=== PATIENT | female | born 1985 | race American Indian/Alaskan Native ===

== ENCOUNTER 2017-09-04 23:25 | Inpatient (IN) | payer OTHER ==
[2017-09-05] MEDS ORDERED: NACL 0.9% 250ML 250 ML IV ONE (00:34)
--- NOTE | 2017-09-05 00:40 | Emergency Department Report ---
ED Neuro Deficit HPI - General Chief Complaint: Altered Mental Status Stated Complaint: AMS Time Seen by Provider: 09/05/17 00:22 Source: family, EMS (ems notes not available at time of chart dictation), RN notes reviewed Mode of arrival: Stretcher Limitations: Altered Mental Status, Physical Limitation - History of Present Illness Initial Comments: This is a 32-year-old female who is unknown to this provider previously. She is accompanied by her , Mr. Ermias Quiles; [phone] Primary care doctor at the [facility]. Patient is accompanied by her , who reports that patient's last known well time was at 9:30 on the evening of presentation. He reports that the patient had consumed marijuana at 6:30 in the afternoon, and a sexual enhancement supplement , from a local sex shop, he does not know the active ingredients or have the pill bottle on him. He reports then at around 9:30 PM, the patient was nonresponsive and nonverbal. He is fairly certain that this is her last known well time. The patient is nonverbal, and cannot describe exacerbating or relieving factors. Please note that the patient was triaged at 23:46, and had initial orders placed at 23:57. I was not personally informed of the patient's neurologic symptoms. I picked up the patient at 12:25 AM. After a quick evaluation of the patient and with her , a code stroke was called overhead. Fingerstick was noted to be within normal limits, and a noncontrast CT scan of the brain was also negative. The patient's verbally stated that the patient was not , and stated he would sign consent attesting as much. In addition, the patient required an emergent CT angiogram of the head and neck. The risks, benefits, alternatives were discussed with the , and he gave verbal and written consent for IV contrast. The CT angiogram of the brain was interpreted as negative. The patient was seen in conjunction with stroke neurology, Dr. Cooper, who recommended TPA. The risks of TPA were discussed with the , including the risk of disability, brain bleed, and . He gave verbal informed consent as well as signing consent. The patient is currently receiving TPA infusion. Consult the stroke neurology recommended an emergent MRI to evaluate for possible brainstem stroke. She recommended transfer to a dedicated neurology facility if MRI confirmed brainstem stroke. -: Sudden Location: speech, left face, left arm History of same: No Place: home Severity: severe Quality: other (the patient is nonverbal, cannot describe quality, and cannot describe exacerbating or relieving factors) Associated Symptoms: other - Related Data Home Medications: Home Medications Medication Instructions Recorded Confirmed Last Taken FLUoxetine HCL [FLUoxetine] 60 mg PO QDAY 09/05/17 09/05/17 1 Day Ago ~09/04/17 Hydroxyzine HCl 25 mg PO HS 09/05/17 09/05/17 2 Days Ago ~09/03/17 Prazosin HCl 2 mg PO HS 09/05/17 09/05/17 2 Days Ago ~09/03/17 buPROPion [Wellbutrin] 200 mg PO DAILY 09/05/17 09/05/17 1 Day Ago ~09/04/17 Previous Rx's Medication Instructions Recorded Last Taken Type Ibuprofen [Motrin] 800 mg PO Q8HR PRN #20 tablet 01/28/15 2 Weeks Ago Rx ~08/22/17 Allergies/Adverse Reactions: Allergies Allergy/AdvReac Type Severity Reaction Status Date / Time No Known Allergies Allergy Verified 09/04/17 23:55 ED Review of Systems ROS: Stated complaint: AMS Other details as noted in HPI Comment: Unobtainable due to pts medical conditions ED Past Medical Hx - Past Medical History Previous Medical History?: No - Surgical History Past Surgical History?: No - Social History Smoking Status: Current Some Day Smoker Substance Use Type: None - Medications Home Medications: Home Medications Medication Instructions Recorded Confirmed Last Taken Type Ibuprofen [Motrin] 800 mg PO Q8HR PRN #20 tablet 01/28/15 09/05/17 2 Weeks Ago Rx ~08/22/17 FLUoxetine HCL [FLUoxetine] 60 mg PO QDAY 09/05/17 09/05/17 1 Day Ago History ~09/04/17 Hydroxyzine HCl 25 mg PO HS 09/05/17 09/05/17 2 Days Ago History ~09/03/17 Prazosin HCl 2 mg PO HS 09/05/17 09/05/17 2 Days Ago History ~09/03/17 buPROPion [Wellbutrin] 200 mg PO DAILY 09/05/17 09/05/17 1 Day Ago History ~09/04/17 ED Neuro Physical Exam - General Limitations: Altered Mental Status, Physical Limitation General appearance: alert, in no apparent distress Suspected Stroke: Yes - Head Head exam: Present: atraumatic, normocephalic - Eye Eye exam: Present: normal appearance, PERRL, EOMI. Absent: nystagmus - ENT ENT exam: Present: normal exam, mucous membranes moist, normal external ear exam - Neck Neck exam: Present: normal inspection, full ROM - Respiratory Respiratory exam: Present: normal lung sounds bilaterally. Absent: respiratory distress - Cardiovascular Cardiovascular Exam: Present: regular rate, normal rhythm, normal heart sounds. Absent: bradycardia, tachycardia, irregular rhythm, systolic murmur, diastolic murmur, rubs, gallop - GI/Abdominal GI/Abdominal exam: Present: soft, normal bowel sounds. Absent: distended, tenderness, guarding, rebound, rigid, pulsatile mass - Extremities Exam Extremities exam: Present: normal inspection, normal capillary refill. Absent: pedal edema, calf tenderness - Back Exam Back exam: Present: normal inspection. Absent: paraspinal tenderness, vertebral tenderness - Neurological Exam Neurological exam: Present: motor sensory deficit - NIHSS Assessment Interval: Baseline 1a. Level of Consciousness: alert 1b. LOC Questions: answers no questions correctly 1c. LOC Commands: performs no tasks correctly 2. Best Gaze: normal 3. Visual: bilateral hemianopia (unable to assess) 4. Facial Palsy: minor paralysis (unable to assess) 5b. Motor Arm Right: no movement 5a. Motor Arm Left: no movement 6a. Motor Leg Left: no movement 6b. Motor Leg Right: no movement 7. Limb Ataxia: amputation 8. Sensory: severe/total sensory loss 9. Best Language: mute/global aphasia 10. Dysarthria: intubated or other barrier 11. Extinction/Inattention: visual/tactile inattention - Psychiatric Psychiatric exam: Present: anxious - Skin Skin exam: Present: warm, dry, intact, normal color. Absent: rash ED Course Vital Signs 09/04/17 09/05/17 09/05/17 23:46 01:32 01:33 Temperature 97.9 F Pulse Rate 70 69 69 Pulse Rate [ Apical] Pulse Rate [ Left Arm] Respiratory Rate Respiratory Rate [Left Arm] Blood Pressure 144/88 152/89 152/89 Blood Pressure [Left Arm] Blood Pressure [Left] O2 Sat by Pulse 99 Oximetry O2 Sat by Pulse Oximetry [Left Arm] 09/05/17 09/05/17 09/05/17 04:30 05:00 05:30 Temperature Pulse Rate 78 64 61 Pulse Rate [ Apical] Pulse Rate [ Left Arm] Respiratory 14 12 12 Rate Respiratory Rate [Left Arm] Blood Pressure Blood Pressure [Left Arm] Blood Pressure 117/55 116/66 118/67 [Left] O2 Sat by Pulse 98 98 98 Oximetry O2 Sat by Pulse Oximetry [Left Arm] 09/05/17 09/05/17 09/05/17 06:00 06:26 07:03 Temperature Pulse Rate 69 Pulse Rate [ Apical] Pulse Rate [ 69 Left Arm] Respiratory 12 12 Rate Respiratory 15 Rate [Left Arm] Blood Pressure Blood Pressure 116/67 [Left Arm] Blood Pressure 115/71 [Left] O2 Sat by Pulse 95 98 Oximetry O2 Sat by Pulse 97 Oximetry [Left Arm] 09/05/17 09/05/17 09/05/17 07:12 07:17 08:03 Temperature 97.1 F L Pulse Rate Pulse Rate [ 70 Apical] Pulse Rate [ 71 Left Arm] Respiratory Rate Respiratory 18 Rate [Left Arm] Blood Pressure Blood Pressure 112/70 [Left Arm] Blood Pressure [Left] O2 Sat by Pulse Oximetry O2 Sat by Pulse 97 Oximetry [Left Arm] 09/05/17 09:03 Temperature Pulse Rate Pulse Rate [ Apical] Pulse Rate [ 75 Left Arm] Respiratory Rate Respiratory 14 Rate [Left Arm] Blood Pressure Blood Pressure 105/59 [Left Arm] Blood Pressure [Left] O2 Sat by Pulse Oximetry O2 Sat by Pulse 96 Oximetry [Left Arm] - Reevaluation(s) Reevaluation #1: 09/05/17 02:36 CT angiogram of the neck is negative for thrombosis or significant disease. MR is pending at this time. Patient is able to move her hands at this point in time. Vital signs remain unchanged and stable. Reevaluation #2: 09/05/17 03:37 Patient able to lift both arms, and wiggle both feet. Speaking in soft sentences. Currently in MRI. Reevaluation #3: 09/05/17 04:27 MRI result pending. Reevaluation #4: 09/05/17 04:47 MRI of the brain is negative. Patient moving 4 extremities. Patient speaking. Critical care contacted. Dr. Schafer authorized placement into the icu Reevaluation #5: 09/05/17 05:26 Dr. Vyas accepted the patient to the medical service. - Lab Data Result diagrams: 09/05/17 00:26 09/05/17 00:26 Lab Results 09/05/17 09/05/17 09/05/17 Range/Units 00:26 00:26 00:26 WBC 6.5 (4.5-11.0) K/mm3 RBC 4.93 (3.65-5.03) M/mm3 Hgb 13.3 (10.1-14.3) gm/dl Hct 41.6 (30.3-42.9) % MCV 85 (79-97) fl MCH 27 L (28-32) pg MCHC 32 (30-34) % RDW 13.5 (13.2-15.2) % Plt Count 388 (140-440) K/mm3 Lymph % (Auto) 32.3 (13.4-35.0) % Norman % (Auto) 10.7 H (0.0-7.3) % Eos % (Auto) 2.2 (0.0-4.3) % Baso % (Auto) 0.6 (0.0-1.8) % Lymph # 2.1 (1.2-5.4) K/mm3 Norman # 0.7 (0.0-0.8) K/mm3 Eos # 0.1 (0.0-0.4) K/mm3 Baso # 0.0 (0.0-0.1) K/mm3 Seg Neutrophils % 54.2 (40.0-70.0) % Seg Neutrophils # 3.5 (1.8-7.7) K/mm3 PT (12.2-14.9) Sec. INR (0.87-1.13) APTT (24.2-36.6) Sec. Thrombin Time (15.1-19.6) Sec. Sodium 137 (137-145) mmol/L Potassium 4.3 (3.6-5.0) mmol/L Chloride 101.7 (98-107) mmol/L Carbon Dioxide 23 (22-30) mmol/L Anion Gap 17 mmol/L BUN 10 (7-17) mg/dL Creatinine 0.6 L (0.7-1.2) mg/dL Estimated GFR > 60 ml/min BUN/Creatinine Ratio 17 % Glucose 85 (65-100) mg/dL POC Glucose (70-105) Calcium 9.0 (8.4-10.2) mg/dL Total Bilirubin < 0.20 (0.1-1.2) mg/dL AST 14 (5-40) units/L ALT 20 (7-56) units/L Alkaline Phosphatase 93 (35-129) units/L Total Creatine Kinase (30-135) units/L CK-MB (CK-2) (0.0-4.0) ng/mL CK-MB (CK-2) Rel Index (0-4) Troponin T (0.00-0.029) ng/mL Total Protein 6.9 (6.3-8.2) g/dL Albumin 4.1 (3.9-5) g/dL Albumin/Globulin Ratio 1.5 % TSH 1.620 (0.270-4.200) mlU/mL HCG, Quant (0-4) mIU/mL Urine Color (Yellow) Urine Turbidity (Clear) Urine pH (5.0-7.0) Ur Specific [place] (1.003-1.030) Urine Protein (Negative) mg/dL Urine Glucose (UA) (Negative) mg/dL Urine Ketones (Negative) mg/dL Urine Blood (Negative) Urine Nitrite (Negative) Urine Bilirubin (Negative) Urine Urobilinogen (<2.0) mg/dL Ur Leukocyte Esterase (Negative) Urine WBC (Auto) (0.0-6.0) /HPF Urine RBC (Auto) (0.0-6.0) /HPF U Epithel Cells (Auto) (0-13.0) /HPF Urine Mucus /HPF Salicylates (2.8-20.0) mg/dL Urine Opiates Screen Urine Methadone Screen Acetaminophen (10.0-30.0) ug/mL Ur Barbiturates Screen Ur Phencyclidine Scrn Ur Amphetamines Screen U Benzodiazepines Scrn Urine Cocaine Screen U Marijuana (THC) Screen Drugs of Abuse Note Plasma/Serum Alcohol (0-0.07) % 09/05/17 09/05/17 09/05/17 Range/Units 00:26 01:13 01:13 WBC (4.5-11.0) K/mm3 RBC (3.65-5.03) M/mm3 Hgb (10.1-14.3) gm/dl Hct (30.3-42.9) % MCV (79-97) fl MCH (28-32) pg MCHC (30-34) % RDW (13.2-15.2) % Plt Count (140-440) K/mm3 Lymph % (Auto) (13.4-35.0) % Norman % (Auto) (0.0-7.3) % Eos % (Auto) (0.0-4.3) % Baso % (Auto) (0.0-1.8) % Lymph # (1.2-5.4) K/mm3 Norman # (0.0-0.8) K/mm3 Eos # (0.0-0.4) K/mm3 Baso # (0.0-0.1) K/mm3 Seg Neutrophils % (40.0-70.0) % Seg Neutrophils # (1.8-7.7) K/mm3 PT 13.4 (12.2-14.9) Sec. INR 0.97 (0.87-1.13) APTT 30.3 (24.2-36.6) Sec. Thrombin Time 32.3 H (15.1-19.6) Sec. Sodium (137-145) mmol/L Potassium (3.6-5.0) mmol/L Chloride (98-107) mmol/L Carbon Dioxide (22-30) mmol/L Anion Gap mmol/L BUN (7-17) mg/dL Creatinine (0.7-1.2) mg/dL Estimated GFR ml/min BUN/Creatinine Ratio % Glucose (65-100) mg/dL POC Glucose (70-105) Calcium (8.4-10.2) mg/dL Total Bilirubin (0.1-1.2) mg/dL AST (5-40) units/L ALT (7-56) units/L Alkaline Phosphatase (35-129) units/L Total Creatine Kinase 101 (30-135) units/L CK-MB (CK-2) < 1.0 (0.0-4.0) ng/mL CK-MB (CK-2) Rel Index 0.9 (0-4) Troponin T < 0.010 (0.00-0.029) ng/mL Total Protein (6.3-8.2) g/dL Albumin (3.9-5) g/dL Albumin/Globulin Ratio % TSH (0.270-4.200) mlU/mL HCG, Quant (0-4) mIU/mL Urine Color (Yellow) Urine Turbidity (Clear) Urine pH (5.0-7.0) Ur Specific [place] (1.003-1.030) Urine Protein (Negative) mg/dL Urine Glucose (UA) (Negative) mg/dL Urine Ketones (Negative) mg/dL Urine Blood (Negative) Urine Nitrite (Negative) Urine Bilirubin (Negative) Urine Urobilinogen (<2.0) mg/dL Ur Leukocyte Esterase (Negative) Urine WBC (Auto) (0.0-6.0) /HPF Urine RBC (Auto) (0.0-6.0) /HPF U Epithel Cells (Auto) (0-13.0) /HPF Urine Mucus /HPF Salicylates (2.8-20.0) mg/dL Urine Opiates Screen Urine Methadone Screen Acetaminophen (10.0-30.0) ug/mL Ur Barbiturates Screen Ur Phencyclidine Scrn Ur Amphetamines Screen U Benzodiazepines Scrn Urine Cocaine Screen U Marijuana (THC) Screen Drugs of Abuse Note Plasma/Serum Alcohol < 0.01 (0-0.07) % 09/05/17 09/05/17 09/05/17 Range/Units 01:13 01:13 01:13 WBC (4.5-11.0) K/mm3 RBC (3.65-5.03) M/mm3 Hgb (10.1-14.3) gm/dl Hct (30.3-42.9) % MCV (79-97) fl MCH (28-32) pg MCHC (30-34) % RDW (13.2-15.2) % Plt Count (140-440) K/mm3 Lymph % (Auto) (13.4-35.0) % Norman % (Auto) (0.0-7.3) % Eos % (Auto) (0.0-4.3) % Baso % (Auto) (0.0-1.8) % Lymph # (1.2-5.4) K/mm3 Norman # (0.0-0.8) K/mm3 Eos # (0.0-0.4) K/mm3 Baso # (0.0-0.1) K/mm3 Seg Neutrophils % (40.0-70.0) % Seg Neutrophils # (1.8-7.7) K/mm3 PT (12.2-14.9) Sec. INR (0.87-1.13) APTT (24.2-36.6) Sec. Thrombin Time (15.1-19.6) Sec. Sodium (137-145) mmol/L Potassium (3.6-5.0) mmol/L Chloride (98-107) mmol/L Carbon Dioxide (22-30) mmol/L Anion Gap mmol/L BUN (7-17) mg/dL Creatinine (0.7-1.2) mg/dL Estimated GFR ml/min BUN/Creatinine Ratio % Glucose (65-100) mg/dL POC Glucose (70-105) Calcium (8.4-10.2) mg/dL Total Bilirubin (0.1-1.2) mg/dL AST (5-40) units/L ALT (7-56) units/L Alkaline Phosphatase (35-129) units/L Total Creatine Kinase (30-135) units/L CK-MB (CK-2) (0.0-4.0) ng/mL CK-MB (CK-2) Rel Index (0-4) Troponin T (0.00-0.029) ng/mL Total Protein (6.3-8.2) g/dL Albumin (3.9-5) g/dL Albumin/Globulin Ratio % TSH (0.270-4.200) mlU/mL HCG, Quant (0-4) mIU/mL Urine Color (Yellow) Urine Turbidity (Clear) Urine pH (5.0-7.0) Ur Specific [place] (1.003-1.030) Urine Protein (Negative) mg/dL Urine Glucose (UA) (Negative) mg/dL Urine Ketones (Negative) mg/dL Urine Blood (Negative) Urine Nitrite (Negative) Urine Bilirubin (Negative) Urine Urobilinogen (<2.0) mg/dL Ur Leukocyte Esterase (Negative) Urine WBC (Auto) (0.0-6.0) /HPF Urine RBC (Auto) (0.0-6.0) /HPF U Epithel Cells (Auto) (0-13.0) /HPF Urine Mucus /HPF Salicylates < 0.3 L (2.8-20.0) mg/dL Urine Opiates Screen Urine Methadone Screen Acetaminophen < 5.0 L (10.0-30.0) ug/mL Ur Barbiturates Screen Ur Phencyclidine Scrn Ur Amphetamines Screen U Benzodiazepines Scrn Urine Cocaine Screen U Marijuana (THC) Screen Drugs of Abuse Note Plasma/Serum Alcohol < 0.01 (0-0.07) % 09/05/17 09/05/17 09/05/17 Range/Units 01:13 03:00 03:00 WBC (4.5-11.0) K/mm3 RBC (3.65-5.03) M/mm3 Hgb (10.1-14.3) gm/dl Hct (30.3-42.9) % MCV (79-97) fl MCH (28-32) pg MCHC (30-34) % RDW (13.2-15.2) % Plt Count (140-440) K/mm3 Lymph % (Auto) (13.4-35.0) % Norman % (Auto) (0.0-7.3) % Eos % (Auto) (0.0-4.3) % Baso % (Auto) (0.0-1.8) % Lymph # (1.2-5.4) K/mm3 Norman # (0.0-0.8) K/mm3 Eos # (0.0-0.4) K/mm3 Baso # (0.0-0.1) K/mm3 Seg Neutrophils % (40.0-70.0) % Seg Neutrophils # (1.8-7.7) K/mm3 PT (12.2-14.9) Sec. INR (0.87-1.13) APTT (24.2-36.6) Sec. Thrombin Time (15.1-19.6) Sec. Sodium (137-145) mmol/L Potassium (3.6-5.0) mmol/L Chloride (98-107) mmol/L Carbon Dioxide (22-30) mmol/L Anion Gap mmol/L BUN (7-17) mg/dL Creatinine (0.7-1.2) mg/dL Estimated GFR ml/min BUN/Creatinine Ratio % Glucose (65-100) mg/dL POC Glucose (70-105) Calcium (8.4-10.2) mg/dL Total Bilirubin (0.1-1.2) mg/dL AST (5-40) units/L ALT (7-56) units/L Alkaline Phosphatase (35-129) units/L Total Creatine Kinase (30-135) units/L CK-MB (CK-2) (0.0-4.0) ng/mL CK-MB (CK-2) Rel Index (0-4) Troponin T (0.00-0.029) ng/mL Total Protein (6.3-8.2) g/dL Albumin (3.9-5) g/dL Albumin/Globulin Ratio % TSH (0.270-4.200) mlU/mL HCG, Quant < 2 (0-4) mIU/mL Urine Color Straw (Yellow) Urine Turbidity Clear (Clear) Urine pH 6.0 (5.0-7.0) Ur Specific [place] 1.047 H (1.003-1.030) Urine Protein <15 mg/dl (Negative) mg/dL Urine Glucose (UA) Neg (Negative) mg/dL Urine Ketones Neg (Negative) mg/dL Urine Blood Neg (Negative) Urine Nitrite Neg (Negative) Urine Bilirubin Neg (Negative) Urine Urobilinogen < 2.0 (<2.0) mg/dL Ur Leukocyte Esterase Neg (Negative) Urine WBC (Auto) < 1.0 (0.0-6.0) /HPF Urine RBC (Auto) < 1.0 (0.0-6.0) /HPF U Epithel Cells (Auto) < 1.0 (0-13.0) /HPF Urine Mucus Few /HPF Salicylates (2.8-20.0) mg/dL Urine Opiates Screen Presumptive negative Urine Methadone Screen Presumptive negative Acetaminophen (10.0-30.0) ug/mL Ur Barbiturates Screen Presumptive negative Ur Phencyclidine Scrn Presumptive negative Ur Amphetamines Screen Presumptive negative U Benzodiazepines Scrn Presumptive negative Urine Cocaine Screen Presumptive negative U Marijuana (THC) Screen Presumptive positive Drugs of Abuse Note Disclamer Plasma/Serum Alcohol (0-0.07) % 09/05/17 Range/Units 05:09 WBC (4.5-11.0) K/mm3 RBC (3.65-5.03) M/mm3 Hgb (10.1-14.3) gm/dl Hct (30.3-42.9) % MCV (79-97) fl MCH (28-32) pg MCHC (30-34) % RDW (13.2-15.2) % Plt Count (140-440) K/mm3 Lymph % (Auto) (13.4-35.0) % Norman % (Auto) (0.0-7.3) % Eos % (Auto) (0.0-4.3) % Baso % (Auto) (0.0-1.8) % Lymph # (1.2-5.4) K/mm3 [place] # (0.0-0.8) K/mm3 Eos # (0.0-0.4) K/mm3 Baso # (0.0-0.1) K/mm3 Seg Neutrophils % (40.0-70.0) % Seg Neutrophils # (1.8-7.7) K/mm3 PT (12.2-14.9) Sec. INR (0.87-1.13) APTT (24.2-36.6) Sec. Thrombin Time (15.1-19.6) Sec. Sodium (137-145) mmol/L Potassium (3.6-5.0) mmol/L Chloride (98-107) mmol/L Carbon Dioxide (22-30) mmol/L Anion Gap mmol/L BUN (7-17) mg/dL Creatinine (0.7-1.2) mg/dL Estimated GFR ml/min BUN/Creatinine Ratio % Glucose (65-100) mg/dL POC Glucose 73 (70-105) Calcium (8.4-10.2) mg/dL Total Bilirubin (0.1-1.2) mg/dL AST (5-40) units/L ALT (7-56) units/L Alkaline Phosphatase (35-129) units/L Total Creatine Kinase (30-135) units/L CK-MB (CK-2) (0.0-4.0) ng/mL CK-MB (CK-2) Rel Index (0-4) Troponin T (0.00-0.029) ng/mL Total Protein (6.3-8.2) g/dL Albumin (3.9-5) g/dL Albumin/Globulin Ratio % TSH (0.270-4.200) mlU/mL HCG, Quant (0-4) mIU/mL Urine Color (Yellow) Urine Turbidity (Clear) Urine pH (5.0-7.0) Ur Specific [place] (1.003-1.030) Urine Protein (Negative) mg/dL Urine Glucose (UA) (Negative) mg/dL Urine Ketones (Negative) mg/dL Urine Blood (Negative) Urine Nitrite (Negative) Urine Bilirubin (Negative) Urine Urobilinogen (<2.0) mg/dL Ur Leukocyte Esterase (Negative) Urine WBC (Auto) (0.0-6.0) /HPF Urine RBC (Auto) (0.0-6.0) /HPF U Epithel Cells (Auto) (0-13.0) /HPF Urine Mucus /HPF Salicylates (2.8-20.0) mg/dL Urine Opiates Screen Urine Methadone Screen Acetaminophen (10.0-30.0) ug/mL Ur Barbiturates Screen Ur Phencyclidine Scrn Ur Amphetamines Screen U Benzodiazepines Scrn Urine Cocaine Screen U Marijuana (THC) Screen Drugs of Abuse Note Plasma/Serum Alcohol (0-0.07) % - EKG Data -: EKG Interpreted by Tn EKG shows normal: sinus rhythm, axis, intervals, QRS complexes, ST-T waves When compared to previous EKG there are: previous EKG unavailable 09/05/17 02:03 Normal sinus, 73 beats per minute, normal axis, normal intervals, not a STEMI. - Radiology Data Radiology results: report reviewed, image reviewed Noncontrast CT scan of the brain is negative. The CT angiogram of the brain is negative. - Thrombolytic Inclusion/Exclusion Thrombolytic Inclusion Criteria: NIH Stroke Scale Deficit, Negative CT Scan for ICH, Age 18 or Older, Glucose of 50-400mg/dl Critical Care Time: Yes Critical care time in (mins) excluding proc time.: 60 Critical care attestation.: If time is entered above; I have spent that time in minutes in the direct care of this critically ill patient, excluding procedure time. ED Disposition Clinical Impression: Aphasia, Weakness Disposition: DC-[id number] OP ADMIT IP TO THIS HOSP Is pt being admited?: Yes Condition: Good
[2017-09-05 00:54] LABS: Basophils % (Auto) 0.6 % (0.0-1.8); Eosinophils # (Auto) 0.1 K/mm3 (0.0-0.4); Eosinophils % (Auto) 2.2 % (0.0-4.3); Hematocrit 41.6 % (30.3-42.9); Hemoglobin 13.3 gm/dl (10.1-14.3); Lymphocytes # (Auto) 2.1 K/mm3 (1.2-5.4); Lymphocytes % (Auto) 32.3 % (13.4-35.0); Mean Corpuscular HGB Conc 32 % (30-34); Mean Corpuscular Hemoglobin 27 pg (28-32); Mean Corpuscular Volume 85 fl (79-97); Monocytes # (Auto) 0.7 K/mm3 (0.0-0.8); Monocytes % (Auto) 10.7 % (0.0-7.3); Platelet Count 388 K/mm3 (140-440); Red Blood Count 4.93 M/mm3 (3.65-5.03); Red Cell Distribution Width 13.5 % (13.2-15.2)
--- NOTE | 2017-09-05 01:00 | Cat Scan Report ---
FINAL REPORT PROCEDURE: CT HEAD/BRAIN WO CON TECHNIQUE: Computerized tomography of the head was performed without contrast material. HISTORY: Stroke symptoms COMPARISON: No prior studies are available for comparison. FINDINGS: Skull and scalp: Normal. Paranasal sinuses: Normal. Ventricles and subarachnoid spaces: Normal. Cerebrum: No evidence of hemorrhage, acute infarction or mass . Cerebellum and brainstem: No evidence of hemorrhage, acute infarction or mass. Vasculature: Normal. Comments: None. IMPRESSION: Normal Examination
[2017-09-05] MEDS ORDERED: ACTIVASE ONE (01:11)
[2017-09-05 01:12] LABS: Alanine Aminotransferase 20 units/L (7-56); Albumin 4.1 g/dL (3.9-5); BUN/Creatinine Ratio 17; Blood Urea Nitrogen 10 mg/dL (7-17); Hemolysis Index 0
[2017-09-05] MEDS ORDERED: NACL 0.9% IV ONE (01:29)
[2017-09-05] MEDS ORDERED: ACTIVASE IV ONE ×2 (01:29)
--- NOTE | 2017-09-05 01:34 | Cat Scan Report ---
FINAL REPORT PROCEDURE: CT ANGIO HEAD TECHNIQUE: Computerized tomographic angiography of the head was performed after the IV injection of iodinated nonionic contrast including image processing. The image data was postprocessed using 2-dimensional multiplanar reformatted (MPR) and 3-dimensional (MIP and/or volume rendered) techniques. HISTORY: stroke sx COMPARISON: No prior studies are available for comparison. FINDINGS: Cerebrum: No evidence of hemorrhage, acute ischemia or mass. Cerebellum: No evidence of hemorrhage, acute ischemia or mass. Subarachnoid spaces and ventricles: Normal. Intracranial vessels: Carotid siphon: Normal. Anterior cerebral: Normal. Middle cerebral: Normal. Posterior cerebral:Normal. Vertebral arteries including basilar: Normal. Aneurysms: None. Dural sinuses: Normal. IMPRESSION: Normal Examination.
[2017-09-05 01:56] LABS: INR 0.97 (0.87-1.13)
[2017-09-05 02:00] LABS: Partial Thromboplastin Time 30.3 Sec. (24.2-36.6); Thrombin Time 32.3 Sec. (15.1-19.6)
[2017-09-05 02:06] LABS: Creatine Kinase MB < 1.0 ng/mL (0.0-4.0)
--- NOTE | 2017-09-05 02:31 | Cat Scan Report ---
FINAL REPORT PROCEDURE: CT ANGIO NECK TECHNIQUE: Computerized tomographic angiography of the neck was performed after the IV injection of iodinated nonionic contrast including image processing. The image data was postprocessed using 2-dimensional multiplanar reformatted (MPR) and 3-dimensional (MIP and/or volume rendered) techniques. HISTORY: stroke sx COMPARISON: No prior studies are available for comparison. Note: Assessment of carotid artery stenosis is based on measurement of the distal internal carotid artery diameter as the denominator for stenosis calculations and the [place] Symptomatic Carotid Endarterectomy Trial (NASCET) stenosis criteria . CPT 3100F FINDINGS: Sinuses: Normal . 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 Aortic arch: Normal . Right carotid artery: Normal . Left carotid artery: Normal . Vertebral arteries: Normal . IMPRESSION: Normal Examination
[2017-09-05 03:34] LABS: Bilirubin,Urine NEG (Negative); Blood,Urine NEG (Negative); Color,Urine Straw (Yellow); Mucus,Urine FEW /HPF; Protein,Urine <15 mg/dL mg/dL (Negative); RBC,Urine < 1.0 /HPF (0.0-6.0); Urobilinogen,Urine < 2.0 mg/dL (<2.0); WBC,Urine < 1.0 /HPF (0.0-6.0)
[2017-09-05 03:40] LABS: Amphetamine Screen,Urine PRESUMPTIVE NEGATIVE; Benzodiazepines Screen,Urine PRESUMPTIVE NEGATIVE; Cocaine Screen,Urine PRESUMPTIVE NEGATIVE; Methadone Screen,Urine PRESUMPTIVE NEGATIVE; Opiate Screen,Urine PRESUMPTIVE NEGATIVE
[2017-09-05 03:53] LABS: Cannabinoid Screen,Urine PRESUMPTIVE POSITIVE
--- NOTE | 2017-09-05 04:30 | Magnetic Resonance Report ---
FINAL REPORT PROCEDURE: MR BRAIN WO CON TECHNIQUE: Magnetic resonance imaging of the brain was performed without contrast material. HISTORY: cva COMPARISON: No prior studies are available for comparison. FINDINGS: Skull base and calvarium: Normal. Paranasal sinuses: The visualized paranasal sinuses are clear. Cerebellum: No evidence of hemorrhage, ischemia or mass. Brainstem: No evidence of hemorrhage, ischemia or mass. Cerebrum: No evidence of hemorrhage, ischemia or mass. Ventricles: Normal in size and morphology for the patient's age. Pituitary gland and sella: Normal. Globes and orbits: Normal. Vasculature: Normal arterial and venous flow voids. Other: None. IMPRESSION: Normal Examination
[2017-09-05] MEDS ORDERED: TYLENOL ONE (05:28)
[2017-09-05] MEDS ORDERED: TYLENOL PO ONE (05:40)
[2017-09-05] MEDS ORDERED: SODIUM CHLORIDE FLUSH SYRINGE 10 ML IV PRN (07:17)
--- NOTE | 2017-09-05 07:34 | History and Physical Report ---
History of Present Illness Date of examination: 09/05/17 Date of admission: 09/05/17 06:18 Chief complaint: Altered level of consciousness, unable to talk, generalized weakness History of present illness: Very pleasant -[id number] female patient presented to the emergency room with altered level of consciousness , unable to talk and generalized weakness after she took marijuana/marijuana- related substance Patient was evaluated in the ED, administer TPA protocol and admitted as acute CVA. After TPA Patient's reports that her symptoms significantly improved back to baseline. At the time of my evaluation patient did not complain any weakness Speech clear, alert awake oriented 3 Denies headache or dizziness Past History Past Medical History: other (depression) Past Surgical History: No surgical history Social history: lives with family, smoking, alcohol abuse (social), other ( marijuana) Family history: hypertension Medications and Allergies Allergies Allergy/AdvReac Type Severity Reaction Status Date / Time No Known Allergies Allergy Verified 09/04/17 23:55 Home Medications Medication Instructions Recorded Confirmed Last Taken Type Ibuprofen [Motrin] 800 mg PO Q8HR PRN #20 tablet 01/28/15 09/05/17 2 Weeks Ago Rx ~08/22/17 FLUoxetine HCL [FLUoxetine] 60 mg PO QDAY 09/05/17 09/05/17 1 Day Ago History ~09/04/17 Hydroxyzine HCl 25 mg PO HS 09/05/17 09/05/17 2 Days Ago History ~09/03/17 Prazosin HCl 2 mg PO HS 09/05/17 09/05/17 2 Days Ago History ~09/03/17 buPROPion [Wellbutrin] 200 mg PO DAILY 09/05/17 09/05/17 1 Day Ago History ~09/04/17 Review of Systems Constitutional: no weight loss, no weight gain Ears, nose, mouth and throat: no nasal congestion, no nasal discharge Cardiovascular: no chest pain, no orthopnea, no palpitations Respiratory: no cough with sputum, no shortness of breath Gastrointestinal: no abdominal pain, no nausea, no vomiting Genitourinary Female: no flank pain, no dysuria Musculoskeletal: other (advised weakness/and able to talk or move) Integumentary: no rash, no lesions Neurological: weakness, aphasia (brief episode ) Psychiatric: depression, no anxiety Endocrine: no cold intolerance, no heat intolerance, no polydipsia, no polyuria Hematologic/Lymphatic: no easy bruising, no easy bleeding Allergic/Immunologic: no urticaria, no allergic rhinitis Exam - Constitutional Vitals: Temp Pulse Resp BP Pulse Ox 97.9 F 69 12 115/71 98 09/04/17 23:46 09/05/17 06:00 18 06:26 09/05/17 06:00 09/05/17 06:26 General appearance: Present: no acute distress, well-nourished, obese - EENT Eyes: Present: PERRL, EOM intact - Neck Neck: Present: supple, normal ROM - Respiratory Respiratory effort: normal Respiratory: bilateral: diminished, negative: rales, rhonchi, wheezing - Cardiovascular Rhythm: regular Heart Sounds: Present: S1 & S2 - Extremities Extremities: no ischemia, No edema - Abdominal General gastrointestinal: Present: soft, non-tender, non-distended, normal bowel sounds - Musculoskeletal Musculoskeletal: strength equal bilaterally - Psychiatric Psychiatric: appropriate mood/affect, cooperative - Neurologic Neurologic: CNII-XII intact, moves all extremities Results - Labs CBC & Chem 7: 09/05/17 00:26 09/05/17 00:26 Labs: Abnormal lab results 09/05/17 09/05/17 09/05/17 Range/Units 00:26 00:26 01:13 MCH 27 L (28-32) pg [place] % (Auto) 10.7 H (0.0-7.3) % Thrombin Time 32.3 H (15.1-19.6) Sec. Creatinine 0.6 L (0.7-1.2) mg/dL Ur Specific [place] (1.003-1.030) Salicylates (2.8-20.0) mg/dL Acetaminophen (10.0-30.0) ug/mL 09/05/17 09/05/17 09/05/17 Range/Units 01:13 01:13 03:00 MCH (28-32) pg [place] % (Auto) (0.0-7.3) % Thrombin Time (15.1-19.6) Sec. Creatinine (0.7-1.2) mg/dL Ur Specific [place] 1.047 H (1.003-1.030) Salicylates < 0.3 L (2.8-20.0) mg/dL Acetaminophen < 5.0 L (10.0-30.0) ug/mL Assessment and Plan --Acute CVA-like symptoms:s/p Tpa generalized weakness in all extremities, unable to speak present on admission; now resolved back to baseline, Status post IV TPA, continue TPA protocol CT head negative, MRI brain negative for acute abnormality CTA chest, CTA head negative, Aspirin,statin after 24 hours after TPA rpt CT head without after 24 hrs, diet as tolerated Physical therapy occupational therapy rehabilitation evaluation, --Ongoing tobacco use; smoking cessation counseling, nicotine patch as needed --Recreational drug use; counseling done patient strongly advised to quit recreational drug use Verbalized understanding --DVT prophylaxis;SCD[pharmacologic anticoagulation at this point[s/p Tpa] Admit to ICU for close observation for 24 hours Critical care time 45 minutes .
--- NOTE | 2017-09-05 09:55 | Consultation ---
History of Present Illness - Reason for Consult Consult date: 09/05/17 Status POST TPA for stroke like symptoms Requesting physician: CASSANDRA MOYER - History of Present Illness 32 y/o female, admitted with stroke like symptoms. Administered TPA around 0100 this am. Transitioned to ICU for further monitoring based upon our stroke protocol. Medications and Allergies Allergies Allergy/AdvReac Type Severity Reaction Status Date / Time No Known Allergies Allergy Verified 09/04/17 23:55 Home Medications Medication Instructions Recorded Confirmed Last Taken Type Cyclobenzaprine [Flexeril] 10 mg PO TID PRN #20 tablet 01/28/15 Unknown Rx Ibuprofen [Motrin] 800 mg PO Q8HR PRN #20 tablet 01/28/15 Unknown Rx Active Meds: Active Medications Aspirin (Aspirin) 325 mg PO QDAY FERN Atorvastatin Calcium (Lipitor) 80 mg PO QHS FERN Famotidine (Pepcid) 20 mg PO BID FERN Sodium Chloride (Sodium Chloride Flush Syringe 10 Ml) 10 ml IV PRN PRN PRN Reason: LINE FLUSH Exam - Constitutional Vitals: Temp Pulse Resp BP Pulse Ox 97.1 F L 71 18 112/70 97 09/05/17 07:17 09/05/17 08:03 09/05/17 08:03 09/05/17 08:03 09/05/17 08:03 Results - Labs CBC & Chem 7: 09/05/17 00:26 09/05/17 00:26 Labs: Abnormal lab results 09/05/17 09/05/17 09/05/17 Range/Units 00:26 00:26 01:13 MCH 27 L (28-32) pg [place] % (Auto) 10.7 H (0.0-7.3) % Thrombin Time 32.3 H (15.1-19.6) Sec. Creatinine 0.6 L (0.7-1.2) mg/dL Ur Specific [place] (1.003-1.030) Salicylates (2.8-20.0) mg/dL Acetaminophen (10.0-30.0) ug/mL 09/05/17 09/05/17 09/05/17 Range/Units 01:13 01:13 03:00 MCH (28-32) pg [place] % (Auto) (0.0-7.3) % Thrombin Time (15.1-19.6) Sec. Creatinine (0.7-1.2) mg/dL Ur Specific [place] 1.047 H (1.003-1.030) Salicylates < 0.3 L (2.8-20.0) mg/dL Acetaminophen < 5.0 L (10.0-30.0) ug/mL Assessment and Plan 32 y/o female status post TPA for stroke like symptoms. q1hour neuro checks BP control Neurology consult and follow up
--- NOTE | 2017-09-05 11:10 | Consultation ---
History of Present Illness Consult date: 09/05/17 Requesting physician: YOVANA JONES Reason for Consult: Acute CVA. Chief complaint: CVA symptoms. History of present illness: 32 years old right handed female with a past medical history of anxiety, depression and GERD, presented for all extremities weakness, mute. Acute CVA was diagnosed and treated with IV TPA. She was home, then suddenly can 't speak and all extremities weakness. Per ER physician note, her NIHSS were 20. After admission, she improved, almost back to normal. Her only complaints are pains. Past History Past Medical History: other (depression, anxiety, GERD.) Past Surgical History: Other (fat lysis.) Social history: no significant social history Family history: hypertension Medications and Allergies Allergies Allergy/AdvReac Type Severity Reaction Status Date / Time No Known Allergies Allergy Verified 09/04/17 23:55 Home Medications Medication Instructions Recorded Confirmed Last Taken Type Cyclobenzaprine [Flexeril] 10 mg PO TID PRN #20 tablet 01/28/15 Unknown Rx Ibuprofen [Motrin] 800 mg PO Q8HR PRN #20 tablet 01/28/15 Unknown Rx Active Meds: Active Medications Aspirin (Aspirin) 325 mg PO QDAY FERN Atorvastatin Calcium (Lipitor) 80 mg PO QHS FERN Famotidine (Pepcid) 20 mg PO BID FERN Sodium Chloride (Sodium Chloride Flush Syringe 10 Ml) 10 ml IV PRN PRN PRN Reason: LINE FLUSH Review of Systems All systems: negative (pains, all over. All other 10 points of systems are reviwed and negative.) Physical Examination - Vital Signs Vital Signs: Vital Signs Temp Pulse BP Pulse Ox 97.9 F 70 144/88 99 09/04/17 23:46 09/04/17 23:46 09/04/17 23:46 09/04/17 23:46 - Constitutional General appearance: comfortable - EENT EENT: Present: PERRL, mucous membranes moist - Respiratory Respiratory: Present: lungs clear, normal breath sounds - Cardiovascular Cardiovascular: Present: regular rate, no murmurs Extremities: Present: no peripheral edema bilatateraly, no clubbing, cyanosis - Gastrointestinal Gastrointestinal: Present: soft, non-tender - Integumentary Integumentary: Present: normal - Neurologic Cranial nerve examination: intact Speech examination: intact Sensorimotor examination: intact Detailed motor examination: grossly full strength in Reflexes: 1+: ankle, bicep, knee, tricep - Psychiatric Psychiatric: Present: mood/affect appropriate - Assessment Assessment Interval: Baseline - Level of Consciousness 1a. Level of Consciousness: alert - LOC Questions 1b. LOC Questions: answers correctly - LOC Command 1c. LOC Commands: performs tasks correctly - Best Gaze 2. Best Gaze: normal - Visual 3. Visual: no visual loss - Facial Palsy 4. Facial Palsy: normal symmetrical movement - Motor Arm 5b. Motor Arm Right: no drift - Motor Leg 6a. Motor Leg Left: no drift - Limb Ataxia 7. Limb Ataxia: absent - Sensory 8. Sensory: normal - Best Language 9. Best Language: no aphasia - Dysarthria 10. Dysarthria: normal - Extinction and Inattention 11. Extinction/Inattention: no abnormality Results - Laboratory Findings CBC and BMP: 09/05/17 00:26 09/05/17 00:26 Abnormal Lab Findings: Abnormal Labs 09/05/17 09/05/17 09/05/17 00:26 00:26 01:13 MCH 27 L [place] % (Auto) 10.7 H Thrombin Time 32.3 H Creatinine 0.6 L Ur Specific [place] Salicylates Acetaminophen 09/05/17 09/05/17 09/05/17 01:13 01:13 03:00 MCH [place] % (Auto) Thrombin Time Creatinine Ur Specific [place] 1.047 H Salicylates < 0.3 L Acetaminophen < 5.0 L Assessment and Plan 1. Acute CVA symptoms. All extremities weakness, mute. S/P IV TPA. Negative brain MRI, CTA head and neck, negative. NIHSS 0. Echo, lipid profile. 2. Pains all over. Per her nurse, possible pressured her to get response when ER physician did physical examination. PRN pain medicines. 3. She denied using control pill. Labs for lupus anticoagulant, protein C and S, homecysteine, factor five leiden, antithrombin III. 4. Post TPA protocol. Repeat head CT without contrast in 24 hours post IV TPA. If no hemorrhage or bleeding, aspirin. 5. Plan discussed with her and Dr. Jones. 6. Will follow up with you. 7. If D/C, F/U with neurology in 4-6 weeks.
[2017-09-05] MEDS: PEPCID PO SCH ×2 (16:15→22:55)
[2017-09-05] MEDS ORDERED: TYLENOL PO PRN (16:44)
[2017-09-05] MEDS ORDERED: MAGNESIUM SULFATE 4GM/100ML 4 GM/100 ML BAG IV ONE (16:45)
--- NOTE | 2017-09-06 09:09 | Progress Note ---
Assessment and Plan Assessment and plan: --Acute CVA-like symptoms:s/p t TPA No neurological symptoms back to baseline, Follow-up CT head without contrast today, if negative , can start aspirin and statin Physical therapy occupational therapy rehabilitation evaluation, Workup; CT head negative, MRI brain negative for acute abnormality CTA chest, CTA head negative, Echo; EF 55-60% Carotid Doppler; less than 50% stenosis --Ongoing tobacco use; smoking cessation counseling, nicotine patch as needed --History of depression; resume home medications --Recreational drug use; counseling done patient strongly advised to quit recreational drug use Verbalized understanding --DVT prophylaxis;SCD[pharmacologic anticoagulation at this point[s/p Tpa] CT head is negative patient may be transferred out of ICU Critical care time 35 minutes . History Interval history: Patient seen and examined medical records reviewed No new events reported by the nursing staff Patient complains of generalized body pains No weakness or numbness, speech clear vital signs reviewed Hospitalist Physical - Constitutional Vitals: Temp Pulse Resp BP Pulse Ox 97.8 F 83 14 105/59 100 09/06/17 08:00 09/05/17 22:00 09/05/17 09:03 09/05/17 09:03 09/06/17 08:17 General appearance: Present: no acute distress, well-nourished, obese - EENT Eyes: Present: PERRL, EOM intact - Neck Neck: Present: supple, normal ROM - Respiratory Respiratory effort: normal Respiratory: negative: rales, rhonchi, wheezing - Cardiovascular Rhythm: regular Heart Sounds: Present: S1 & S2 - Extremities Extremities: no ischemia, No edema - Abdominal General gastrointestinal: soft, non-tender, non-distended, normal bowel sounds - Integumentary Integumentary: Present: clear, warm - Psychiatric Psychiatric: appropriate mood/affect, cooperative - Neurologic Neurologic: CNII-XII intact, moves all extremities Results - Labs CBC & Chem 7: 09/05/17 00:26 09/05/17 00:26 Labs: Laboratory Last Values WBC 6.5 K/mm3 (4.5-11.0) 09/05/17 00:26 RBC 4.93 M/mm3 (3.65-5.03) 09/05/17 00:26 Hgb 13.3 gm/dl (10.1-14.3) 09/05/17 00:26 Hct 41.6 % (30.3-42.9) 09/05/17 00:26 MCV 85 fl (79-97) 09/05/17 00: MCH 27 pg (28-32) L 09/05/17 00: MCHC 32 % (30-34) 09/05/17 00:26 RDW 13.5 % (13.2-15.2) 09/05/17 00:26 Plt Count 388 K/mm3 (140-440) 09/05/17 00:26 Lymph % (Auto) 32.3 % (13.4-35.0) 09/05/17 00:26 [place] % (Auto) 10.7 % (0.0-7.3) H 09/05/17 00:26 Eos % (Auto) 2.2 % (0.0-4.3) 09/05/17 00: Baso % (Auto) 0.6 % (0.0-1.8) 09/05/17 00: Lymph # 2.1 K/mm3 (1.2-5.4) 09/05/17 00:26 [place] # 0.7 K/mm3 (0.0-0.8) 09/05/17 00:26 Eos # 0.1 K/mm3 (0.0-0.4) 09/05/17 00:26 Baso # 0.0 K/mm3 (0.0-0.1) 09/05/17 00:26 Seg Neutrophils % 54.2 % (40.0-70.0) 09/05/17 00: Seg Neutrophils # 3.5 K/mm3 (1.8-7.7) 09/05/17 00:26 PT 13.4 Sec. (12.2-14.9) 09/05/17 01:13 INR 0.97 (0.87-1.13) 09/05/17 01:13 APTT 30.3 Sec. (24.2-36.6) 09/05/17 01:13 Thrombin Time 32.3 Sec. (15.1-19.6) H 09/05/17 01:13 Sodium 137 mmol/L (137-145) 09/05/17 00:26 Potassium 4.3 mmol/L (3.6-5.0) 09/05/17 00:26 Chloride 101.7 mmol/L (98-107) 09/05/17 00:26 Carbon Dioxide 23 mmol/L (22-30) 09/05/17 00:26 Anion Gap 17 mmol/L 09/05/17 00:26 BUN 10 mg/dL (7-17) 09/05/17 00:26 Creatinine 0.6 mg/dL (0.7-1.2) L 09/05/17 00:26 Estimated GFR > 60 ml/min 09/05/17 00:26 BUN/Creatinine Ratio 17 % 09/05/17 00:26 Glucose 85 mg/dL (65-100) 09/05/17 00:26 POC Glucose 73 (70-105) 09/05/17 05:09 Calcium 9.0 mg/dL (8.4-10.2) 09/05/17 00:26 Total Bilirubin < 0.20 mg/dL (0.1-1.2) 09/05/17 00:26 AST 14 units/L (5-40) 09/05/17 00:26 ALT 20 units/L (7-56) 09/05/17 00:26 Alkaline Phosphatase 93 units/L (35-129) 09/05/17 00:26 Total Creatine Kinase 101 units/L (30-135) 09/05/17 01:13 CK-MB (CK-2) < 1.0 ng/mL (0.0-4.0) 09/05/17 01:13 CK-MB (CK-2) Rel Index 0.9 (0-4) 09/05/17 01:13 Troponin T < 0.010 ng/mL (0.00-0.029) 09/05/17 01:13 Total Protein 6.9 g/dL (6.3-8.2) 09/05/17 00:26 Albumin 4.1 g/dL (3.9-5) 09/05/17 00:26 Albumin/Globulin Ratio 1.5 % 09/05/17 00:26 Triglycerides 104 mg/dL (2-149) 09/05/17 13:21 Cholesterol 200 mg/dL (50-199) H 09/05/17 13:21 LDL Cholesterol Direct 153 mg/dL (50-130) H 06/21/18 13:21 HDL Cholesterol 50 mg/dL (40-59) 09/05/17 13:21 Cholesterol/HDL Ratio 4.00 % 09/05/17 13:21 TSH 1.620 mlU/mL (0.270-4.200) 09/05/17 00:26 HCG, Quant < 2 mIU/mL (0-4) 09/05/17 01:13 Urine Color Straw (Yellow) 09/05/17 03:00 Urine Turbidity Clear (Clear) 09/05/17 03:00 Urine pH 6.0 (5.0-7.0) 09/05/17 03:00 Ur Specific [place] 1.047 (1.003-1.030) H 09/05/17 03:00 Urine Protein <15 mg/dl mg/dL (Negative) 09/05/17 03:00 Urine Glucose (UA) Neg mg/dL (Negative) 09/05/17 03:00 Urine Ketones Neg mg/dL (Negative) 09/05/17 03:00 Urine Blood Neg (Negative) 09/05/17 03:00 Urine Nitrite Neg (Negative) 09/05/17 03:00 Urine Bilirubin Neg (Negative) 09/05/17 03:00 Urine Urobilinogen < 2.0 mg/dL (<2.0) 09/05/17 03:00 Ur Leukocyte Esterase Neg (Negative) 09/05/17 03:00 Urine WBC (Auto) < 1.0 /HPF (0.0-6.0) 09/05/17 03:00 Urine RBC (Auto) < 1.0 /HPF (0.0-6.0) 09/05/17 03:00 U Epithel Cells (Auto) < 1.0 /HPF (0-13.0) 09/05/17 03:00 Urine Mucus Few /HPF 09/05/17 03:00 Salicylates < 0.3 mg/dL (2.8-20.0) L 09/05/17 01:13 Urine Opiates Screen Presumptive negative 09/05/17 03:00 Urine Methadone Screen Presumptive negative 09/05/17 03:00 Acetaminophen < 5.0 ug/mL (10.0-30.0) L 09/05/17 01:13 Ur Barbiturates Screen Presumptive negative 09/05/17 03:00 Ur Phencyclidine Scrn Presumptive negative 09/05/17 03:00 Ur Amphetamines Screen Presumptive negative 09/05/17 03:00 U Benzodiazepines Scrn Presumptive negative 09/05/17 03:00 Urine Cocaine Screen Presumptive negative 09/05/17 03:00 U Marijuana (THC) Screen Presumptive positive 09/05/17 03:00 Drugs of Abuse Note Disclamer 09/05/17 03:00 Plasma/Serum Alcohol < 0.01 % (0-0.07) 09/05/17 01:13
--- NOTE | 2017-09-06 10:57 | Progress Note ---
Assessment and Plan 1. Acute CVA symptoms. All extremities weakness, mute. S/P IV TPA. Negative brain MRI, CTA head and neck, negative. NIHSS 0. Echo,EF 55-60%, no vegetation, no thrombus, no emboli reported. 2. Dyslipidemia. Statin. LDL 153. 3. She denied using control pill. Labs for lupus anticoagulant, protein C and S, homecysteine, factor five leiden, antithrombin III. 4. Repeat head CT without contrast in 24 hours post IV TPA. If no hemorrhage or bleeding, aspirin. 5. Plan discussed with her and her nurse. 6. Sign off. Please call neurology if further suggestions needed. 7. If D/C, F/U with neurology in 4-6 weeks. Subjective Date of service: 09/06/17 Principal diagnosis: CVA. Interval history: Back to baseline. Objective - Vital Sign Vital Signs - 12hr 09/06/17 09/06/17 09/06/17 00:00 02:00 02:59 Temperature 98.1 F 98.2 F O2 Sat by Pulse 100 100 Oximetry 09/06/17 09/06/17 09/06/17 04:00 08:00 08:17 Temperature 97.8 F O2 Sat by Pulse 100 100 Oximetry - General Apperance Constitutional: comfortable - EENT EENT: PERRL, mucous membranes moist - Respiratory Respiratory: chest non-tender, lungs clear - Cardiovascular Cardiovascular: regular rate, no murmurs Extremities: no peripheral edema bilat, no clubbing, cyanosis - Gastrointestinal Gastrointestinal: soft, non-tender - Integumentary Integumentary: normal - Neurologic Cranial nerve examination: intact Speech examination: intact Detailed motor examination: grossly full strength in Detailed sensory examination: intact Reflexes: 2+: ankle, bicep, knee, tricep - Psychiatric Psychiatric: mood/affect appropriate - Laboratory Findings CBC and BMP: 09/05/17 00:26 09/05/17 00:26 Abnormal Lab Findings: Abnormal Labs 09/05/17 09/05/17 09/05/17 00:26 00:26 01:13 MCH [address] [place] % (Auto) 10.7 H Thrombin Time 32.3 H Creatinine 0.6 L Cholesterol LDL Cholesterol Direct Ur Specific [place] Salicylates Acetaminophen 09/05/17 09/05/17 09/05/17 01:13 01:13 03:[address] [place] % (Auto) Thrombin Time Creatinine Cholesterol LDL Cholesterol Direct Ur Specific [place] 1.047 H Salicylates < 0.3 L Acetaminophen < 5.0 L 09/05/17 13:[address] [place] % (Auto) Thrombin Time Creatinine Cholesterol 200 H LDL Cholesterol Direct 153 H Ur Specific [place] Salicylates Acetaminophen
--- NOTE | 2017-09-06 12:00 | Progress Note ---
Assessment and Plan 32 y/o female status post TPA for stroke like symptoms. Stable for transfer out of ICU Follow up neuro recs. Subjective Date of service: 09/06/17 Principal diagnosis: CVA. Interval history: 24 hour period at 0100. Patient seen and cleared by PT. Stable for transfer. Objective - Constitutional Vitals: Vital Signs - 12hr 09/06/17 09/06/17 09/06/17 00:00 02:00 02:59 Temperature 98.1 F 98.2 F O2 Sat by Pulse 100 100 Oximetry 09/06/17 09/06/17 09/06/17 04:00 08:00 08:17 Temperature 97.8 F O2 Sat by Pulse 100 100 Oximetry - Labs CBC & Chem 7: 09/05/17 00:26 09/05/17 00:26 Labs: Abnormal lab results 09/05/17 Range/Units 13:21 Cholesterol 200 H (50-199) mg/dL LDL Cholesterol Direct 153 H (50-130) mg/dL
--- NOTE | 2017-09-06 12:23 | Cat Scan Report ---
CT HEAD WITHOUT CONTRAST INDICATION: Post TPA 24-hour followup. COMPARISON: Yesterday. FINDINGS: Noncontrast head CT demonstrates normal ventricles and sulci without acute or recent infarct, hemorrhage, mass effect or midline shift. No abnormal extra-axial fluid collections. Posterior fossa structures and basilar cisterns appear within normal limits. Clear visualized paranasal sinuses and mastoid air cells. Intact calvarium. Normal overlying scalp soft tissues. CONCLUSION: No acute intracranial CT abnormality, as described. Thank you for the opportunity to participate in this patient's care.
[2017-09-06] MEDS: ASPIRIN PO SCH (13:40)
[2017-09-06] MEDS: PEPCID PO SCH ×2 (13:40→21:35)
[2017-09-06] MEDS: PERCOCET 5/325 PO PRN ×2 (15:39→21:35)
[2017-09-07 08:31] VITALS: BP 111/61
[2017-09-07] MEDS: PERCOCET 5/325 PO PRN (11:08)
[2017-09-07] MEDS: ASPIRIN PO SCH (11:08)
[2017-09-07] MEDS: PEPCID PO SCH (11:08)
--- NOTE | 2017-09-07 11:45 | Discharge Summary ---
Providers - Providers Date of Admission: 09/05/17 06:18 Date of discharge: 09/07/17 Attending physician: PADMINI UNGER 09/05/17 Consult to Physician [CONS] Routine Comment: Consulting Provider: JOHN JOLLEY Physician Instructions: Reason For Exam: Acute CVA s/p tPA 09/05/17 07:17 Occupational Therapy Evaluate and Treat [CONS] Routine Comment: Reason For Exam: Neuro deficits Physical Therapy Evaluation and Treat [CONS] Routine Comment: Reason For Exam: Neuro deficits 09/05/17 07:19 Speech Therapy Evaluation and Treat [CONS] Routine Reason For Exam: swallow eval Hospitalization Reason for admission: Altered level of consciousness/inability to move/ inability to speak Condition: Good Pertinent studies: CT head negative, MRI brain negative for acute abnormality CTA chest, CTA head negative, Echo; EF 55-60% Carotid Doppler; less than 50% stenosis Hospital course: 32-year-old obese -[place] female patient was admitted through emergency room with altered level of consciousness and all extremity weakness and unable to speak Patient was evaluated in the emergency room, received TPA per protocol and was admitted to ICU for close observation. She was also evaluated by neurologist, stroke protocol followed, Stabilized in ICU transfer to medical floor, started on aspirin after 24 hours of TPA ,patient had elevated LDL, received statin. Patient did not have any neurological symptoms. Physical therapy occupational therapy speech therapy has evaluated the patient Patient's symptoms significantly improved,Today she is comfortable alert awake oriented 3 Vital signs as stable, physical examination done by me prior to discharge is unremarkable Ambulatory and tolerating oral nutrition speech clear No neurologic or musculoskeletal deficits. Patient is hemodynamically and clinically stable for discharge Advised seat is dressed, strongly advised to see neurologist at [facility] for further evaluation and management Final diagnosis; and management --Metabolic encephalopathy; probably secondary to marijuana, sexual enhancement medication/resolved --Acute CVA-like symptoms; status post TPA, Neuro workup negative --Possible TIA; aspirin and statin, follow with her private neurologist for further evaluation and management --Dyslipidemia; lipid-lowering medications, exercise as tolerated and weight reduction, repeat lipid panel in [address] [facility] office, low-cholesterol diet --Obesity; BMI 33.9, diet modification and exercise as tolerated and weight reduction and medically stable --History of anxiety disorder/depression; continue current home medications follow with psych as needed --Ongoing tobacco use; smoking cessation counseling done, advised nicotine patch as needed --Recreational drug use; marijuana, sexual enhancement medications Patient strongly advised to quit using the above medications patient verbalized understanding Patient was advised to 3 days work excuse from 09/09/2017 -- 09/11/2017 Advised to check with primary care physician for further recommendations Disposition: DC-01 TO HOME OR SELFCARE Time spent for discharge: 32 min - Discharge Diagnoses (1) Neurological symptoms Status: Acute (2) Dyslipidemia Status: Acute (3) Obesity (BMI 30.0-34.9) Status: Acute (4) Obesity Status: Acute (5) Tobacco use Status: Acute (6) TIA (transient ischemic attack) Status: Acute Core Measure Documentation - Palliative Care Palliative Care/ Comfort Measures: Not Applicable - Core Measures Any of the following diagnoses?: none Exam - Constitutional Vitals: Temp Pulse Resp BP Pulse Ox 98.7 F 65 20 111/61 97 09/07/17 07:39 09/07/17 07:39 09/07/17 07:39 09/07/17 07:39 09/07/17 09:45 General appearance: Present: no acute distress, well-nourished - EENT Eyes: Present: PERRL, EOM intact - Neck Neck: Present: supple, normal ROM - Respiratory Respiratory effort: normal Respiratory: bilateral: diminished, negative: rales, rhonchi, wheezing - Cardiovascular Rhythm: regular Heart Sounds: Present: S1 & S2 - Extremities Extremities: no ischemia, No edema - Abdominal General gastrointestinal: Present: soft, non-tender, non-distended, normal bowel sounds - Musculoskeletal Musculoskeletal: strength equal bilaterally - Psychiatric Psychiatric: appropriate mood/affect, cooperative - Neurologic Neurologic: CNII-XII intact, focal deficits Plan Activity: no restrictions Diet: low cholesterol Special Instructions: smoking cessation Additional Instructions: Smoking cessation, counseling done advised nicotine patch as needed. Exercise as tolerated and weight reduction and medically stable. Patient advised to check lipid panel in 3 months at [facility] office. Advised to see neurologist at the [facility] in 1 week. Advised 3 days work excuse 09/09/17 - 09/11/2017, check with primary care physician for further recommendations Follow up with: [facility] [Other] - 3-5 Days ANA RODRIGUEZ MD [Staff Physician] - 7 Days Prescriptions: RX: Aspirin EC [Aspirin Enteric Coated TAB] 325 mg PO QDAY #30 tablet. AtorvaSTATin [Lipitor] 40 mg PO QHS #30 tab
== END 2017-09-07 16:49 | disposition home or self-care (01) | DRG 917 ==
LOC: ED 23:25 → CC1 09-05 06:18 → 3A 09-06 14:00
PROVIDERS: ADMIT Internal Medicine; ATTEND Internal Medicine
DX: T40.7X1A Poisoning by cannabis (derivatives), accidental (unintentional), initial encounter (principal); G92 Toxic encephalopathy; G45.9 Transient cerebral ischemic attack, unspecified; F17.200 Nicotine dependence, unspecified, uncomplicated; F32.9 Major depressive disorder, single episode, unspecified; K21.9 Gastro-esophageal reflux disease without esophagitis; Z82.49 Family history of ischemic heart disease and other diseases of the circulatory system; E78.5 Hyperlipidemia, unspecified; Y92.89 Other specified places as the place of occurrence of the external cause; E66.9 Obesity, unspecified; Z68.33 Body mass index [BMI] 33.0-33.9, adult
CPT/HCPCS: 36415; 70450; 70496; 70498; 70551; 80053; 80061; 80307; 80320; 81001; 82550; 82553; 82962; 84443; 84484; 84702; 85025; 85610; 85670; 85730; 93005; 93010; 93306; 93880; A9270-GY; G0480; J2997; Q9967